=== PATIENT | female | born 1980 | race Hispanic/Latino ===

== ENCOUNTER 2017-03-05 12:00 | Emergency (ER) | payer OTHER ==
[2017-03-05 12:00] VITALS: BMI 30.8
[2017-03-05] MEDS ORDERED: Sodium Chloride 0.9% 1,000 ML IV STA (12:40)
--- NOTE | 2017-03-05 12:42 | ED PDOC ---
Syncope/Near Syncope/Dizziness Time Seen by Provider: 03/05/17 12:20 Chief Complaint (Nursing): Dizziness/Lightheaded Chief Complaint (Provider): near syncope History Per: Patient (36 y/o female brought to ED from radiology for near syncope during breast biopsy procedure. States she felt dizzy at time with mild improvement. did not eat prior procedure. No vomiting. NOtes moderate pain by region of biopsy.) Past Medical History Reviewed: Historical Data, Nursing Documentation, Vital Signs Vital Signs: Last Vital Signs Temp Pulse Resp BP Pulse Ox 98 03/05/17 12:03 - Family History Family History: States: No Known Family Hx - Home Medications Home Medications: Ambulatory Orders Medication Instructions Recorded No Known Home Med 03/05/17 - Allergies Allergies/Adverse Reactions: Allergies Allergy/AdvReac Type Severity Reaction Status Date / Time No Known Allergies Allergy Verified 03/05/17 10:45 Review of Systems ROS Statement: Except As Marked, All Systems Reviewed And Found Negative Physical Exam - Reviewed Nursing Documentation Reviewed: Yes Vital Signs Reviewed: Yes - Physical Exam Appears: Positive for: Well, Non-toxic, No Acute Distress Head Exam: Positive for: ATRAUMATIC, NORMAL INSPECTION, NORMOCEPHALIC Skin: Positive for: Normal Color, Warm, DRY Eye Exam: Positive for: EOMI, Normal appearance, PERRL ENT: Positive for: Normal ENT Inspection Neck: Positive for: Normal, Painless ROM Cardiovascular/Chest: Positive for: Regular Rate, Rhythm Respiratory: Positive for: CNT, Normal Breath Sounds Gastrointestinal/Abdominal: Positive for: Normal Exam, Bowel Sounds, Soft Back: Positive for: Normal Inspection Extremity: Positive for: Normal ROM Neurologic/Psych: Positive for: Alert, Oriented - Laboratory Results Result Diagrams: 03/05/17 13:15 03/05/17 13:15 - ECG O2 Sat by Pulse Oximetry: 98 - Progress ED Course And Treament: KDUR 40 meq NS 1 liter wide open Patient to go to Ob/ED subsequently Disposition - Clinical Impression Clinical Impression: Dizziness, Hypokalemia - Patient ED Disposition Is Patient to be Admitted: No - Disposition Disposition: Routine/Home Disposition Time: 14:29 Condition: FAIR Instructions: Hypokalemia (DC), Dizziness (ED) Forms: Besstech (Turkish) Print Language: LUXEMBOURGER
[2017-03-05 13:34] LABS: BASO # 0.1 K/uL (0.0-0.2); BASO % 0.5 % (0.0-2.0); EOS # 0.1 K/uL (0.0-0.7); EOS % 0.7 % (0.0-4.0); HEMATOCRIT 33.8 % (34.0-47.0); LYMPH % 17.7 % (20.0-40.0); MEAN CELL VOLUME 86.8 fl (81.0-99.0); MEAN CORPUSCULAR HEMOGLOBIN 28.5 pg (27.0-31.0); MEAN CORPUSCULAR HGB CONC 32.9 g/dL (33.0-37.0); MEAN PLATELET VOLUME 7.7 fl (7.2-11.7); MONO # 0.5 K/uL (0.0-0.8); MONO % 4.3 % (0.0-10.0); NEUT # 8.8 K/uL (1.8-7.0); NEUT % 76.8 % (50.0-75.0); RED CELL DISTRIBUTION WIDTH 13.7 % (11.5-14.5); WHITE BLOOD COUNT 11.5 K/uL (4.8-10.8)
[2017-03-05 13:44] LABS: BLOOD UREA NITROGEN 5 mg/dl (7-17); CALCIUM 9.1 mg/dL (8.4-10.2); CARBON DIOXIDE 19 mmol/L (22-30); CHLORIDE 107 mmol/L (98-107); GFR AFRICAN-AMERICAN > 60; GLUCOSE,RANDOM 99 mg/dL (65-105); POTASSIUM 3.5 MMOL/L (3.6-5.0); SODIUM 140 mmol/l (132-148)
[2017-03-05] MEDS ORDERED: Potassium Chloride 20 mEq ER Tab PO ONE ×2 (14:27→15:11)
[2017-03-05 15:16] VITALS: RESP 20; O2SAT 100
--- NOTE | 2017-03-05 17:16 | OBHP ---
Datetime: 03/05/2017 16:46 IP Adm Impression: , intrauterine ; No Active Labor IP Chief Complaint Other: lightheaded IP Admit Plan: Discharge home Admit Comment, IP Provider: 36 yo female presents at 21.3 gestation with complaints of feel ing lightheaded as she was getting a breast biopsy done. States she only had orange juice and cracker s in the morning. Patient states she felt dizzy but felt better after fluids were administered. Denie s vaginal bleeding, contractions, n/v, dysuria. Reports good movement. Care: Recieves PNC from Dr. Tillman. As per the patient, the as been remarkab le for a positive Fragile X serum test confirmed with Amniocentesis and abnormal echo results w [facility] US showing IUGR and growth anomalies. Remainder of labs are otherwise unremarkable as per patient. OB History: Pt has had 4 miscarriages and one live . No significant PMHx, Surgical Hx Allergies: NKDA Denies smoking, drinking, alcohol Review of systems as per HPI Physical exam see notes Intrauterine at 20+ weeks near syncopal episode Most likely vasovagal related to breast biopsy. Patient states she feels well Patient to be discharged home heart rate appropriate with Doppler Pelvic Type - PN: Adequate Extremities - PN: Normal Abdomen - PN: Normal Back - PN: Normal Breast - PN: Normal Lungs - PN: Normal Heart - PN: Normal Thyroid - PN: Normal Neurologic - PN: Normal HEENT - PN: Normal General - PN: Normal FHR - Baseline A Provider: 130 Vital Signs Provider: Reviewed; Within Normal Limits IP Chief Complaint: Other NICHD Variability Prov Fetus A: Moderate 6-25bpm NICHD Accel Fetus A IP Provider: 10X10 NICHD Decel Fetus A IP Provider: None Genitourinary Exam: Normal DTRs - PN: Normal
[2017-03-05 22:12] VITALS: BP 123/64; PULSE 79; TEMP 98.5
--- NOTE | 2017-03-06 01:52 | CARD ---
APPROVED REPORT EKG Measurement Heart [id number] <Conclusion> Normal sinus rhythm Normal ECG
== END 2017-03-05 17:10 | disposition home or self-care (01) ==
LOC: H.EROB2 12:00 → H.ER 12:00 → H.EROB 16:28 → H.ER 17:10
DX: R55 Syncope and collapse (principal); Z33.1 Pregnant state, incidental
CPT/HCPCS: 80048; 82948; 85025; 93005; 96360; 99284; J7040

== ENCOUNTER 2017-05-16 16:36 | Emergency (ER) | payer OTHER ==
[2017-05-16 17:35] VITALS: BMI 31.5
[2017-05-16 17:56] LABS: RBC URINE 3 /hpf (0-3); URINE BACTERIA OCC (<OCC); URINE BILIRUBIN NEGATIVE (NEGATIVE); URINE BLOOD NEGATIVE (NEGATIVE); URINE COLOR YELLOW (YELLOW); URINE GLUCOSE (UA) NEG (Normal); URINE KETONE NEGATIVE (NEGATIVE); URINE LEUKOCYTE ESTERASE LARGE Leu/uL (Negative); URINE PROTEIN NEGATIVE (NEGATIVE); URINE UROBILINOGEN 0.2-1.0 mg/dL (0.2-1.0); WBC URINE 20 /hpf (0-5)
--- NOTE | 2017-05-16 18:16 | OBHP ---
Datetime: 05/16/2017 17:45 IP Adm Impression: , intrauterine ; No Active Labor; Intact Membranes IP Chief Complaint Other: felt clear fluid from vagina last night and again this afternoon IP Admit Plan: Observation/Evaluation Admit Comment, IP Provider: 37yo IUP at 31w came c/o clear vagina fluid from vagina last nig ht and again this afternoon. No itching; no foul odor. no CTX; no VB; +FM. PNC: Dr Choudhary - chart revd PMH: PSH: lap chol; ovarian cyst; colono surgery NKA PSoH: denies smoking; ETOH drugs POBH: x 1; TOP x 2; spont ab x 2 A: IUP at 31w no evidence of ROM PLAN: check UA sono ordered spoke with Dr Grimm Pelvic Type - PN: Adequate Extremities - PN: Normal Abdomen - PN: Normal Back - PN: Normal Breast - PN: Not Done Lungs - PN: Not Done Heart - PN: Not Done Thyroid - PN: Not Done Neurologic - PN: Not Done HEENT - PN: Normal General - PN: Normal FHR - Baseline A Provider: 130 Membranes, Provider: Intact Pool Provider: Negative Nitrazine Provider: Negative Ferning Provider: Negative IP Hx Assessment: The History has been Reviewed and is Current Vital Signs Provider: Reviewed; Within Normal Limits NICHD Variability Prov Fetus A: Moderate 6-25bpm NICHD Accel Fetus A IP Provider: 15X15 FHR Category Provider Fetus A: Category I NICHD Decel Fetus A IP Provider: None Dilatation, Provider: 0 Genitourinary Exam: Normal DTRs - PN: Not Done
--- NOTE | 2017-05-16 19:04 | US ---
PROCEDURE: Biophysical profile HISTORY: r/o low fluid level COMPARISON: Nine. TECHNIQUE: Standard protocol for this study/examination. FINDINGS: FINDINGS: Biophysical profile score 8/8 Based on the followin. breathing movements: 2/2 2. Gross body movement: 2/2 3. tone: 2/2 4. Qualitative amniotic fluid index: 2/2 Calculated cardiac rate 138 beats per minute. Breech presentation. Placenta is posterior and fundal. Closed cervix measures 5.4 cm Amniotic fluid index 14.36 cm. IMPRESSION: Biophysical profile score 8/8
[2017-05-17 00:08] VITALS: BP 116/63; PULSE 77; RESP 18; O2SAT 99
== END 2017-05-16 19:35 | disposition home or self-care (01) ==
LOC: H.EROB2 16:36
DX: O34.63 Maternal care for abnormality of vagina, third trimester (principal); N89.8 Other specified noninflammatory disorders of vagina; Z3A.31 31 weeks gestation of pregnancy; O47.03 False labor before 37 completed weeks of gestation, third trimester

== ENCOUNTER 2017-05-27 16:18 | Emergency (ER) | payer OTHER ==
[2017-05-27 17:13] VITALS: BMI 31.6
[2017-05-27] MEDS: Betamethasone Soluspan 30 mg/5mL Inj Susp IM ONE (17:37)
[2017-05-27 22:32] VITALS: BP 122/74; PULSE 80; RESP 16; TEMP 97.8
--- NOTE | 2017-05-27 22:49 | OBHP ---
Datetime: 05/27/2017 22:36 IP Adm Impression: , intrauterine IP Chief Complaint Other: iugr IP Admit Plan: Observation/Evaluation; Discharge home Admit Comment, IP Provider: Late entry Patient is a 37-year-old with an EDC of 07/13/2017 who presents for betamethasone injectio n #[address] Arredondo. Patient is scheduled for a primary delivery on June 04 due to growth restriction. She is to have this section at [facility] with Dr. Arredondo her OB history is significant for current trisomy 18. She denies contractions and spontaneous rupture of membranes o r vaginal bleeding. She does complain of vaginal discharge and states she lives vaginal irritation wi th provided. Patient states she has recently initiated a course of antibiotics for a UTI. Past OB his tory unchanged vaginal delivery 1 Past surgical history: Sigmoid colon resection for recurrent diverticulitis; laparoscopic Choly; laparoscopic ovarian cystectomy pmhx: denies No known drug allergies Medications: vitamins Impression: High risk with growth restriction Current trisomy 18 Vaginal candidiasis Plan: betamethasone # 1 today Return to hospital tomorrow for betamethasone injection #2. Indications for betamethasone discuss with patient. Rodrigo Archuleta Pelvic Type - PN: Adequate Abdomen - PN: Normal Back - PN: Normal Lungs - PN: Normal Heart - PN: Normal Neurologic - PN: Normal HEENT - PN: Normal General - PN: Normal FHR - Baseline A Provider: 140 EGA AdmitDate IP: 33.2 Vital Signs Provider: Within Normal Limits IP Chief Complaint: Other NICHD Variability Prov Fetus A: Absent - Undetectable NICHD Accel Fetus A IP Provider: 15X15 FHR Category Provider Fetus A: Category I Dilatation, Provider: 0 Effacement, Provider: 0 Genitourinary Exam: Normal
== END 2017-05-27 18:07 | disposition home or self-care (01) ==
LOC: H.EROB2 16:18
DX: O36.5930 Maternal care for other known or suspected poor fetal growth, third trimester, not applicable or unspecified (principal); O09.93 Supervision of high risk pregnancy, unspecified, third trimester; Z3A.33 33 weeks gestation of pregnancy; Z23 Encounter for immunization; B37.3 Candidiasis of vulva and vagina; Q91.3 Trisomy 18, unspecified; Z87.448 Personal history of other diseases of urinary system
CPT/HCPCS: 96372; 99283; J0702

== ENCOUNTER 2017-05-28 17:22 | Emergency (ER) | payer OTHER ==
[2017-05-28 17:39] VITALS: BMI 28.3
[2017-05-28] MEDS: Betamethasone Soluspan 30 mg/5mL Inj Susp IM ONE (19:39)
--- NOTE | 2017-05-28 19:40 | OBHP ---
Datetime: 05/28/2017 18:46 IP Adm Impression: , intrauterine IP Chief Complaint Other: Second betamethasone injection IP Admit Plan: Observation/Evaluation Admit Comment, IP Provider: [address] 33+3 wks w/ EDC 07/13/2106 by 7+ week u/s who presents for second Betamethasone injection for FLM for growth restriction per pt. Pt reports that the fetus has Trisomy 18 andwill be delivered at [facility] by Dr. Downing on 06/04/2017. Pt denie s VB, LOF, ctxns and reports FM. Pt received her PN care w/ Dr. Erickson. PMH: Healthy PSH: L/s cholecystectomy 2007 L/s ovarian cystectomy 2008 L/s sigmoid resection for recurrent diverticulitis 2014 Meds: None All: NKDA Fam hx: M- h/o breast cancer [employer] hx: reg periods, reports h/o genital herpes, denies abn paps OB hx: SAB's x 4, no D_Cs per pt 06/2005 , female, 7#5 PE: AFVSS Gen'l: pt appears comfortable lying in stretcher Heart: RRR Chest: Lungs CTA b/l Abd: soft, NT, gravid Ext: NT, no edema VE: Deferred EFM: as above Rebecca: as above A/P: 37 yo at 33+3 wks for second dose of BMZ for growth restriction per pt. Fetsu w/ Tri somy 18 to be deliverd by c/s at [facility] by Dr. Downing. NST reactive Betamethasone given at 7:40 pm. Pt discharged home. Extremities - PN: Normal Abdomen - PN: Normal Back - PN: Normal Lungs - PN: Normal Heart - PN: Normal Neurologic - PN: Normal General - PN: Normal FHR - Baseline A Provider: 120's Contraction Comments Provider: Quiet EGA AdmitDate IP: 33.3 Vital Signs Provider: Reviewed; Within Normal Limits IP Chief Complaint: Other NICHD Variability Prov Fetus A: Moderate 6-25bpm NICHD Accel Fetus A IP Provider: [id number] FHR Category Provider Fetus A: Category I NICHD Decel Fetus A IP Provider: None Datetime: 05/27/2017 22:36 Comments, ACOG Physical Exam: Sterile speculum exam: Whitish yellow curd-like discharge make Gestation - Est Wks by US: 33.3
--- NOTE | 2017-05-28 19:43 | OBDCSUM ---
Datetime: 05/28/2017 19:40 Discharged to, Provider: Home Follow up at, Provider: Dr. Downing Disch Instr Activity: Normal activity Disch Instr Diet: Regular Discharge Instructions, Provider: Routine instructions given Discharge Time: 05/29/2017 19:40 Follow up in weeks, Provider: 06/04/2017 for c/s Contraception discussed, Prov: No Discharge Diagnosis Prov Other: preganncy, received second dose of Betamethasone
[2017-05-29 00:12] VITALS: BP 123/65; PULSE 87; TEMP 97.5
== END 2017-05-28 19:45 | disposition home or self-care (01) ==
LOC: H.EROB2 17:22 → H.EROB 17:38 → H.EROB2 19:45
DX: O36.5933 Maternal care for other known or suspected poor fetal growth, third trimester, fetus 3 (principal); Q91.3 Trisomy 18, unspecified; Z3A.33 33 weeks gestation of pregnancy; Z23 Encounter for immunization
CPT/HCPCS: 96372; 99281; J0702